=== PATIENT | female | born 1990 | race Caucasian/White ===

== ENCOUNTER 2017-11-15 09:11 | Emergency (ER) | payer OTHER ==
[~2017-11-15] VITALS: Ht 175.3 cm; Wt 127.0 kg
[~2017-11-15 09:11] MED LIST: BUSP5 PO; CIPR500 PO; CIPRO500 MG PO; CRANBERRY PO; CRANBERRY TABLETS; CRANBERRY TABS PO; CRUTCH4 USE; CYCL10 PO; Cranberry300 MG PO; DIVA125EC PO; ESCI10 PO; HYDACE5 PO; HYDR1TAB94 PO; IBUP600 PO; IBUP800 PO; INDO25 PO; LEVFLO500 PO; LEVSOD88 PO; METF500 PO; NAPR500 PO; NITR100CA PO; Norco 5-325 Ta1 EACH PO; ONDA4 PO; OXYACE5T PO; PHENA100 PO; PROM25 PO; Percocet 5-3251 EACH PO; Pyridium200 MG PO; RXHYDACE PO; SULF10OPSA OU; SULTRIDS PO; TRAM50 PO; Ultram50 MG PO; [UNRECOGNIZED DRUG - REMARK]
[2017-11-15] MEDS ORDERED: METF500 PO (09:34)
[2017-11-15] MEDS ORDERED: ALLO100 (09:36)
[2017-11-15] MEDS ORDERED: Percocet 5-3251 EACH PO (10:26)
== END 2017-11-15 10:41 | disposition home or self-care (01) ==
LOC: ER 09:11
DX: M25.561 Pain in right knee (principal); Z79.899 Other long term (current) drug therapy; Z79.84 Long term (current) use of oral hypoglycemic drugs
CPT/HCPCS: 73562-RT; 96372; 99283; J1885

== ENCOUNTER 2017-12-19 15:37 | Emergency (ER) | payer OTHER ==
[~2017-12-19] VITALS: Ht 175.3 cm; Wt 104.3 kg
[~2017-12-19 15:37] MED LIST changes: +ALLO100
[2017-12-19] MEDS ORDERED: LEVSOD88 PO (15:42)
[2017-12-19] MEDS ORDERED: Norco 5-325 Ta1 EACH PO (16:16)
== END 2017-12-19 16:24 | disposition home or self-care (01) ==
LOC: ER 15:37
DX: S93.504A Unspecified sprain of right lesser toe(s), initial encounter (principal); W22.8XXA Striking against or struck by other objects, initial encounter; Z79.899 Other long term (current) drug therapy; Z79.84 Long term (current) use of oral hypoglycemic drugs
CPT/HCPCS: 73630

== ENCOUNTER 2018-09-12 18:22 | Emergency (ER) | payer OTHER ==
[~2018-09-12] VITALS: Ht 172.7 cm; Wt 132.9 kg
[2018-09-12 19:52] LABS: BASOPHILS ABSOLUTE AUTO 0.03 K/mm3 (0.00-0.23); BASOPHILS PERCENT AUTO 0 % (0-2); EOSINOPHILS ABSOLUTE AUTO 0.11 K/mm3 (0.00-0.68); EOSINOPHILS PERCENT AUTO 1 % (0-6); Hematocrit 38.6 % (33.0-51.0); Hemoglobin 12.8 g/dL (11.5-16.0); IMMATURE GRAN ABSOLUTE AUTO 0.05 K/mm3 (0.00-0.10); IMMATURE GRAN PERCENT AUTO 0 % (0-1); LYMPHOCYTES ABSOLUTE AUTO 1.75 K/mm3 (0.84-5.20); LYMPHOCYTES PERCENT AUTO 14 % (21-46); MONOCYTES ABSOLUTE AUTO 0.76 K/mm3 (0.16-1.47); MONOCYTES PERCENT AUTO 6 % (4-13); Mean Corpuscular HGB 29.1 pg (26.0-34.0); Mean Corpuscular HGB Conc 33.2 g/dL (31.5-36.5); Mean Corpuscular Volume 88 fL (80-100); Mean Platelet Volume 11.3 fL (9.1-12.4); NEUTROPHILS ABSOLUTE AUTO 10.22 K/mm3 (1.96-9.15); NEUTROPHILS PERCENT AUTO 79 % (41-73); Platelet Count 269 K/mm3 (150-400); RDW Coefficient Variation 13.2 % (11.7-14.2); RDW Standard Deviation 42.4 fL (35.1-46.3); White Blood Cell Count 12.92 K/mm3 (4.00-11.30)
[2018-09-12 20:16] LABS: Alanine Aminotransfer (ALT/SGP 49 U/L (12-78); Albumin, Blood 3.6 g/dL (3.4-5.0); Albumin/Globulin Ratio 0.9 (0.8-1.8); Alk Phos 80 U/L (50-136); Anion Gap 10 mmol/L (6-16); Aspartate Aminotrans (AST/SGOT 25 U/L (12-37); Bilirubin, Total 0.2 mg/dL (0.1-1.0); Blood Urea Nitrogen 13 mg/dL (8-24); CO2, Blood 22 mmol/L (21-32); Calcium, Blood 8.5 mg/dL (8.5-10.1); Chloride, Blood 109 mmol/L (98-108); Glomerular Filtration Rate >60 (60-); Glucose, Blood 140 mg/dL (70-99); Potassium, Blood 4.1 mmol/L (3.5-5.5); Sodium, Blood 141 mmol/L (136-145); Total Protein, Blood 7.6 g/dL (6.4-8.2)
[2018-09-12] MEDS ORDERED: NITR100CA PO (20:29)
[2018-09-12 22:38] LABS: Source, Urine Clean Catch
[2018-09-12 22:41] LABS: Bilirubin, Urine Neg (Neg); Blood, Urine 2+ (Neg); Glucose Qualitative, Urine Neg (Neg); Ketones, Urine 1+ (Neg); Leukocyte Esterase, Urine 2+ (Neg); Nitrite, Urine Pos (Neg); Protein, Urine 3+ (Neg); Urobilinogen, Urine NORM (Normal)
[2018-09-12 22:43] LABS: Appearance, Urine Cloudy (Clear); Color, Urine Yellow (P-Yellow)
[2018-09-12 22:49] LABS: Bacteria Many /hpf; Red Blood Cells, Urine 0-2 /hpf (0-2); Squamous Epithelial Cells Mod /hpf (Few); White Blood Cells, Urine TNTC /hpf (0-5)
[2018-09-12] MEDS ORDERED: CEPH500 PO (23:14)
[2018-09-12] MEDS ORDERED: IBUP600 PO (23:14)
[2018-09-29] MEDS ORDERED: Amoxicillin500 MG PO (20:09)
[2018-09-29] MEDS ORDERED: HYDR1TAB94 PO (20:09)
== END 2018-09-12 23:30 | disposition home or self-care (01) ==
LOC: ER 18:22
PROVIDERS: Physician Assistant
DX: M25.561 Pain in right knee (principal); E03.9 Hypothyroidism, unspecified; Z79.899 Other long term (current) drug therapy
CPT/HCPCS: 36415; 73562-RT; 80053; 81001; 81025; 85025; 87077; 87086; 87186; 96374; 96375; 99283-25; J1885; J3010

== ENCOUNTER → 2019-01-10 | Outpatient (CLI) | payer OTHER ==
[~2019-01-10] MED LIST changes: +ACET325 PO; +ALLO300 PO; +AZO CRANBERRY1 EAC1 PO; +Amoxicillin500 MG PO; +BIRTH CONTROL; +CEFU500T30 PO; +CEPH500 PO; +COLCHICINE0.6 MG PO; +CRANBERRY250 MG PO; +DROSPIRENONE-E1 EACH PO; +IBUP400 PO; +Microgestin1 EACH PO; +OXYC5 PO; +Oxybutynin Chlo15 MG PO; +PRED10 PO; +PROM12.5S PR; +Protonix40 MG PO; +Synthroid88 MCG PO; +Voltaren100 GM TOP; +Yasmin 28 Tabl1 EACH PO; +Zofran8 MG PO
== END ==
LOC: LAB EV 14:40 → LAB SHORT 14:40
DX: R31.29 Other microscopic hematuria (principal)
CPT/HCPCS: 87086

== ENCOUNTER 2019-01-11 03:54 | Emergency (ER) | payer OTHER ==
[~2019-01-11] VITALS: Ht 175.3 cm; Wt 136.1 kg
[~2019-01-11 03:54] MED LIST changes: -ACET325 PO; -ALLO300 PO; -AZO CRANBERRY1 EAC1 PO; -BIRTH CONTROL; -COLCHICINE0.6 MG PO; -CRANBERRY250 MG PO; -DROSPIRENONE-E1 EACH PO; -Microgestin1 EACH PO; -OXYC5 PO; -Oxybutynin Chlo15 MG PO; -PRED10 PO; -PROM12.5S PR; -Protonix40 MG PO; -Synthroid88 MCG PO; -Voltaren100 GM TOP; -Yasmin 28 Tabl1 EACH PO
[2019-01-11] MEDS ORDERED: CRANBERRY250 MG PO (04:16)
[2019-01-11] MEDS ORDERED: Yasmin 28 Tabl1 EACH PO (04:16)
== END 2019-01-11 06:52 | disposition home or self-care (01) ==
LOC: ER 03:54
DX: M54.41 Lumbago with sciatica, right side (principal); Z79.899 Other long term (current) drug therapy
CPT/HCPCS: 72100; 96372; 99283-25; J1885; Q0163

== ENCOUNTER 2019-01-27 14:00 | Observation (INO) | payer OTHER ==
[~2019-01-27] VITALS: Ht 175.3 cm; Wt 143.4 kg
[~2019-01-27 14:00] MED LIST changes: +CRANBERRY250 MG PO; +Yasmin 28 Tabl1 EACH PO
[2019-01-30] MEDS ORDERED: Voltaren100 GM TOP (11:14)
[2019-01-30] MEDS ORDERED: PRED10 PO (11:14)
[2019-01-30] MEDS ORDERED: Percocet 5-3251 EACH PO (11:14)
[2019-03-03] MEDS ORDERED: BIRTH CONTROL (11:15)
[2019-03-03 17:47] LABS: Hematocrit 31.3 % (33.0-51.0); Hemoglobin 10.1 g/dL (11.5-16.0); Mean Corpuscular HGB 28.4 pg (26.0-34.0); Mean Corpuscular HGB Conc 32.3 g/dL (31.5-36.5); Mean Corpuscular Volume 88 fL (80-100); RDW Coefficient Variation 13.8 % (11.7-14.2); RDW Standard Deviation 44.8 fL (35.1-46.3); Red Blood Cell Count 3.56 M/mm3 (3.80-5.20); White Blood Cell Count 13.22 K/mm3 (4.00-11.30)
[2019-03-03 18:30] LABS: Mean Platelet Volume 11.5 fL (9.1-12.4); Platelet Count 213 K/mm3 (150-400)
[2019-03-05] MEDS ORDERED: Microgestin1 EACH PO (14:03)
[2019-03-05] MEDS ORDERED: ACET325 PO (14:04)
[2019-03-05] MEDS ORDERED: OXYC5 PO (14:04)
[2019-03-05] MEDS ORDERED: PROM25 PO (14:05)
== END 2019-03-05 15:25 | disposition home health service (06) ==
LOC: SURS 03-03 10:35 → PRE IP 03-03 10:35 → SURS 03-03 10:35 → PRE IP 03-03 12:00 → SURS 03-03 14:56
PROVIDERS: ADMIT Podiatrist Foot & Ankle Surgery
PROC: 0SGF04Z Fusion of Right Ankle Joint with Internal Fixation Device, Open Approach (ICD-10-PCS; principal; 2019-03-03 12:00)
DX: M19.071 Primary osteoarthritis, right ankle and foot (principal); R11.2 Nausea with vomiting, unspecified; R03.0 Elevated blood-pressure reading, without diagnosis of hypertension; E03.9 Hypothyroidism, unspecified
CPT/HCPCS: 36415; 73610; 85027; 96374; 96375; 96376; 97161; 97166; 97530; 97535; A9270; C1713; G0378; J0171; J0690; J0735; J1170; J1885; J2250; J2405; J2550; J2704; J2795; J3010; J7120

== ENCOUNTER 2019-01-30 08:29 | Emergency (ER) | payer OTHER ==
[~2019-01-30] VITALS: Ht 175.3 cm; Wt 136.1 kg
[2019-01-30] MEDS ORDERED: Percocet 5-3251 EACH PO (11:14)
[2019-01-30] MEDS ORDERED: Voltaren100 GM TOP (11:14)
[2019-01-30] MEDS ORDERED: PRED10 PO (11:14)
== END 2019-01-30 11:59 | disposition home or self-care (01) ==
LOC: ER 08:29
DX: S93.402A Sprain of unspecified ligament of left ankle, initial encounter (principal); S83.92XA Sprain of unspecified site of left knee, initial encounter; X58.XXXA Exposure to other specified factors, initial encounter
CPT/HCPCS: 73590; 73630; 99283-25; A9270-GY

== ENCOUNTER → 2019-03-12 | Outpatient (CLI) | payer OTHER ==
[~2019-03-12] MED LIST changes: +ACET325 PO; +ALLO300 PO; +AZO CRANBERRY1 EAC1 PO; +BIRTH CONTROL; +COLCHICINE0.6 MG PO; +DROSPIRENONE-E1 EACH PO; +Microgestin1 EACH PO; +OXYC5 PO; +Oxybutynin Chlo15 MG PO; +PRED10 PO; +PROM12.5S PR; +Protonix40 MG PO; +Synthroid88 MCG PO; +Voltaren100 GM TOP
[2019-03-13 13:07] LABS: HPV 16 Negative (Negative); HPV 18 Negative (Negative); HPV OTHER HR TYPES Positive (Negative)
== END | disposition home or self-care (01) ==
LOC: LAB SHORT 10:46 → LAB 10:46
PROVIDERS: Obstetrics & Gynecology
DX: Z01.419 Encounter for gynecological examination (general) (routine) without abnormal findings (principal)
CPT/HCPCS: 87624; 87625; G0123

== ENCOUNTER 2019-03-24 16:24 | Emergency (ER) | payer OTHER ==
[~2019-03-24] VITALS: Ht 175.3 cm; Wt 136.1 kg
[~2019-03-24 16:24] MED LIST changes: -ALLO300 PO; -AZO CRANBERRY1 EAC1 PO; -COLCHICINE0.6 MG PO; -DROSPIRENONE-E1 EACH PO; -Oxybutynin Chlo15 MG PO; -PROM12.5S PR; -Protonix40 MG PO; -Synthroid88 MCG PO
[2019-03-24 17:08] LABS: BASOPHILS ABSOLUTE AUTO 0.04 K/mm3 (0.00-0.23); BASOPHILS PERCENT AUTO 0 % (0-2); EOSINOPHILS ABSOLUTE AUTO 0.29 K/mm3 (0.00-0.68); EOSINOPHILS PERCENT AUTO 2 % (0-6); Hematocrit 35.1 % (33.0-51.0); Hemoglobin 11.2 g/dL (11.5-16.0); IMMATURE GRAN ABSOLUTE AUTO 0.05 K/mm3 (0.00-0.10); IMMATURE GRAN PERCENT AUTO 0 % (0-1); LYMPHOCYTES PERCENT AUTO 20 % (21-46); MONOCYTES ABSOLUTE AUTO 0.76 K/mm3 (0.16-1.47); MONOCYTES PERCENT AUTO 6 % (4-13); Mean Corpuscular HGB 28.4 pg (26.0-34.0); Mean Corpuscular HGB Conc 31.9 g/dL (31.5-36.5); Mean Corpuscular Volume 89 fL (80-100); Mean Platelet Volume 11.6 fL (9.1-12.4); NEUTROPHILS ABSOLUTE AUTO 9.86 K/mm3 (1.96-9.15); NEUTROPHILS PERCENT AUTO 72 % (41-73); Platelet Count 346 K/mm3 (150-400); RDW Coefficient Variation 14.1 % (11.7-14.2); RDW Standard Deviation 45.5 fL (35.1-46.3); Red Blood Cell Count 3.94 M/mm3 (3.80-5.20)
[2019-03-24 17:38] LABS: Alanine Aminotransfer (ALT/SGP 26 U/L (12-78); Albumin, Blood 3.5 g/dL (3.4-5.0); Albumin/Globulin Ratio 0.8 (0.8-1.8); Alk Phos 84 U/L (50-136); Anion Gap 6 mmol/L (6-16); Aspartate Aminotrans (AST/SGOT 15 U/L (12-37); Bilirubin, Total 0.3 mg/dL (0.1-1.0); Blood Urea Nitrogen 8 mg/dL (8-24); Bun/Creatinine Ratio 9.8 (12.0-20.0); CO2, Blood 24 mmol/L (21-32); Calcium, Blood 9.5 mg/dL (8.5-10.1); Chloride, Blood 108 mmol/L (98-108); Creatinine, Blood 0.82 mg/dL (0.40-1.00); Globulin, Blood 4.3 g/dL (2.2-4.0); Glomerular Filtration Rate >60 (60-); Glucose, Blood 98 mg/dL (70-99); Sodium, Blood 138 mmol/L (136-145); Total Protein, Blood 7.8 g/dL (6.4-8.2)
[2019-03-24 19:43] LABS: Source, Urine Clean Catch
[2019-03-24 19:46] LABS: Bilirubin, Urine Neg (Neg); Blood, Urine 1+ (Neg); Glucose Qualitative, Urine Neg (Neg); Ketones, Urine Neg (Neg); Leukocyte Esterase, Urine 1+ (Neg); Nitrite, Urine Neg (Neg); Protein, Urine 2+ (Neg); Specific Gravity, Urine 1.015 (1.003-1.022); Urobilinogen, Urine NORM (Normal)
[2019-03-24 19:53] LABS: Appearance, Urine Clear (Clear); Bacteria Many /hpf; Color, Urine Yellow (P-Yellow); Red Blood Cells, Urine 0-2 /hpf (0-2); Squamous Epithelial Cells Few /hpf (Few)
[2019-03-24] MEDS ORDERED: CEPH500 PO (22:05)
[2019-03-24] MEDS ORDERED: PROM12.5S PR (22:05)
[2019-03-24] MEDS ORDERED: Protonix40 MG PO (22:05)
== END 2019-03-24 22:35 | disposition home or self-care (01) ==
LOC: ER 16:24
PROVIDERS: Emergency Medicine
DX: K29.70 Gastritis, unspecified, without bleeding (principal); N39.0 Urinary tract infection, site not specified; Z79.899 Other long term (current) drug therapy; E03.9 Hypothyroidism, unspecified
CPT/HCPCS: 36415; 80053; 81001; 81025; 83690; 85025; 87077; 87086; 87186; 96365; 96375; 99284-25; C9113; J0696; J1200; J1630; J2060; J7030

== ENCOUNTER 2019-05-06 11:26 | Inpatient (IN) | payer OTHER ==
[~2019-05-06] VITALS: Ht 175.3 cm; Wt 136.1 kg
[~2019-05-06 11:26] MED LIST changes: +PROM12.5S PR; +Protonix40 MG PO
[2019-05-06] MEDS ORDERED: Oxybutynin Chlo15 MG PO (11:59)
[2019-05-06] MEDS ORDERED: AZO CRANBERRY1 EAC1 PO (12:00)
[2019-05-06] MEDS ORDERED: DROSPIRENONE-E1 EACH PO (12:00)
[2019-05-06 12:57] LABS: Source, Urine Clean Catch
[2019-05-06 13:10] LABS: Bilirubin, Urine Neg (Neg); Blood, Urine 2+ (Neg); Glucose Qualitative, Urine Neg (Neg); Ketones, Urine Neg (Neg); Leukocyte Esterase, Urine 2+ (Neg); Nitrite, Urine Pos (Neg); Protein, Urine 3+ (Neg); Urobilinogen, Urine NORM (Normal)
[2019-05-06 13:16] LABS: Appearance, Urine Hazy (Clear); Color, Urine Yellow (P-Yellow)
[2019-05-06 13:19] LABS: Bacteria Many /hpf; Squamous Epithelial Cells Many /hpf (Few)
[2019-05-06 13:24] LABS: BASOPHILS ABSOLUTE AUTO 0.04 K/mm3 (0.00-0.23); BASOPHILS PERCENT AUTO 0 % (0-2); EOSINOPHILS ABSOLUTE AUTO 0.12 K/mm3 (0.00-0.68); EOSINOPHILS PERCENT AUTO 1 % (0-6); Hematocrit 33.1 % (33.0-51.0); Hemoglobin 10.3 g/dL (11.5-16.0); IMMATURE GRAN ABSOLUTE AUTO 0.13 K/mm3 (0.00-0.10); IMMATURE GRAN PERCENT AUTO 1 % (0-1); LYMPHOCYTES PERCENT AUTO 30 % (21-46); MONOCYTES ABSOLUTE AUTO 0.65 K/mm3 (0.16-1.47); MONOCYTES PERCENT AUTO 5 % (4-13); Mean Corpuscular HGB 27.5 pg (26.0-34.0); Mean Corpuscular HGB Conc 31.1 g/dL (31.5-36.5); Mean Corpuscular Volume 88 fL (80-100); Mean Platelet Volume 11.4 fL (9.1-12.4); NEUTROPHILS ABSOLUTE AUTO 7.98 K/mm3 (1.96-9.15); NEUTROPHILS PERCENT AUTO 63 % (41-73); Platelet Count 295 K/mm3 (150-400); RDW Coefficient Variation 14.4 % (11.7-14.2); Red Blood Cell Count 3.75 M/mm3 (3.80-5.20); White Blood Cell Count 12.72 K/mm3 (4.00-11.30)
[2019-05-06 13:38] LABS: Alanine Aminotransfer (ALT/SGP 32 U/L (12-78); Albumin, Blood 3.1 g/dL (3.4-5.0); Albumin/Globulin Ratio 0.8 (0.8-1.8); Alk Phos 74 U/L (50-136); Anion Gap 4 mmol/L (6-16); Aspartate Aminotrans (AST/SGOT 19 U/L (12-37); Bilirubin, Total 0.1 mg/dL (0.1-1.0); Blood Urea Nitrogen 11 mg/dL (8-24); CO2, Blood 29 mmol/L (21-32); Calcium, Blood 8.6 mg/dL (8.5-10.1); Chloride, Blood 109 mmol/L (98-108); Creatinine, Blood 0.92 mg/dL (0.40-1.00); Globulin, Blood 3.9 g/dL (2.2-4.0); Glomerular Filtration Rate >60 (60-); Glucose, Blood 80 mg/dL (70-99); Potassium, Blood 3.4 mmol/L (3.5-5.5); Sodium, Blood 142 mmol/L (136-145)
[2019-05-06 13:58] LABS: Source, Urine Catheter
[2019-05-06 14:04] LABS: Bilirubin, Urine Neg (Neg); Blood, Urine 3+ (Neg); Glucose Qualitative, Urine Neg (Neg); Ketones, Urine Neg (Neg); Leukocyte Esterase, Urine 2+ (Neg); Nitrite, Urine Neg (Neg); Protein, Urine 3+ (Neg); Specific Gravity, Urine 1.015 (1.003-1.022); Urobilinogen, Urine NORM (Normal)
[2019-05-06 14:19] LABS: Appearance, Urine Clear (Clear); Color, Urine Yellow (P-Yellow)
[2019-05-06 14:20] LABS: Bacteria Many /hpf; Squamous Epithelial Cells Few /hpf (Few)
[2019-05-07 05:19] LABS: BASOPHILS ABSOLUTE AUTO 0.05 K/mm3 (0.00-0.23); BASOPHILS PERCENT AUTO 0 % (0-2); EOSINOPHILS ABSOLUTE AUTO 0.22 K/mm3 (0.00-0.68); EOSINOPHILS PERCENT AUTO 2 % (0-6); Hematocrit 35.6 % (33.0-51.0); Hemoglobin 11.1 g/dL (11.5-16.0); IMMATURE GRAN ABSOLUTE AUTO 0.14 K/mm3 (0.00-0.10); IMMATURE GRAN PERCENT AUTO 1 % (0-1); LYMPHOCYTES ABSOLUTE AUTO 4.54 K/mm3 (0.84-5.20); LYMPHOCYTES PERCENT AUTO 33 % (21-46); MONOCYTES ABSOLUTE AUTO 0.68 K/mm3 (0.16-1.47); MONOCYTES PERCENT AUTO 5 % (4-13); Mean Corpuscular HGB Conc 31.2 g/dL (31.5-36.5); Mean Corpuscular Volume 87 fL (80-100); NEUTROPHILS PERCENT AUTO 59 % (41-73); RDW Coefficient Variation 14.6 % (11.7-14.2); RDW Standard Deviation 45.5 fL (35.1-46.3); Red Blood Cell Count 4.11 M/mm3 (3.80-5.20); White Blood Cell Count 13.73 K/mm3 (4.00-11.30)
[2019-05-07 05:24] LABS: Mean Platelet Volume 11.3 fL (9.1-12.4); Platelet Count 289 K/mm3 (150-400)
[2019-05-07 05:30] LABS: Alanine Aminotransfer (ALT/SGP 36 U/L (12-78); Albumin, Blood 3.4 g/dL (3.4-5.0); Albumin/Globulin Ratio 0.9 (0.8-1.8); Alk Phos 78 U/L (50-136); Anion Gap 9 mmol/L (6-16); Aspartate Aminotrans (AST/SGOT 20 U/L (12-37); Bilirubin, Total 0.2 mg/dL (0.1-1.0); Blood Urea Nitrogen 12 mg/dL (8-24); Bun/Creatinine Ratio 12.5 (12.0-20.0); CO2, Blood 24 mmol/L (21-32); Calcium, Blood 8.7 mg/dL (8.5-10.1); Chloride, Blood 110 mmol/L (98-108); Creatinine, Blood 0.96 mg/dL (0.40-1.00); Globulin, Blood 3.9 g/dL (2.2-4.0); Glomerular Filtration Rate >60 (60-); Glucose, Blood 75 mg/dL (70-99); Potassium, Blood 4.2 mmol/L (3.5-5.5); Sodium, Blood 143 mmol/L (136-145); Total Protein, Blood 7.3 g/dL (6.4-8.2)
--- NOTE | 2019-05-07 06:15 | NUR ---
Shift summary. Right hand, wrist and arm swollen and painful but no redness or streaking noted. Oxycodone given last pm with good pain relief. brought patient in food and pt promptly threw it all up. Zofran given with relief for the nausea. Pt states right hand is even more swollen this am but it looks about the same to me. Pt getting ancef antibiotics. WBC are up to 13.7 this am. Pt has had a recent right ankle fx which she has to wear an ortho boot for. Otherwise she is non-weight bearing on the right. She has crutches to use if necesscary in the room.
--- NOTE | 2019-05-07 19:23 | NUR ---
SHIFT SUMMARY PT INDEPENDENT TO BATHROOM USING CRUTCHES. REPORTS NAUSEA AFTER OR DURING EACH ANTIBIOTIC. R ARM AND HAND SUPPORTED BY PILLOWS FOR COMFORT. NO FEVER. SHOWER TAKEN AND PT TOLERATED WITH NO DURESS.
[2019-05-08 04:46] LABS: BASOPHILS ABSOLUTE AUTO 0.03 K/mm3 (0.00-0.23); BASOPHILS PERCENT AUTO 0 % (0-2); EOSINOPHILS ABSOLUTE AUTO 0.29 K/mm3 (0.00-0.68); EOSINOPHILS PERCENT AUTO 3 % (0-6); Hematocrit 31.6 % (33.0-51.0); Hemoglobin 9.8 g/dL (11.5-16.0); IMMATURE GRAN ABSOLUTE AUTO 0.08 K/mm3 (0.00-0.10); IMMATURE GRAN PERCENT AUTO 1 % (0-1); LYMPHOCYTES ABSOLUTE AUTO 2.46 K/mm3 (0.84-5.20); LYMPHOCYTES PERCENT AUTO 28 % (21-46); MONOCYTES ABSOLUTE AUTO 0.58 K/mm3 (0.16-1.47); MONOCYTES PERCENT AUTO 7 % (4-13); Mean Corpuscular HGB 27.2 pg (26.0-34.0); Mean Corpuscular Volume 88 fL (80-100); Mean Platelet Volume 11.1 fL (9.1-12.4); NEUTROPHILS ABSOLUTE AUTO 5.51 K/mm3 (1.96-9.15); NEUTROPHILS PERCENT AUTO 62 % (41-73); Platelet Count 260 K/mm3 (150-400); RDW Coefficient Variation 14.7 % (11.7-14.2); RDW Standard Deviation 47.4 fL (35.1-46.3); White Blood Cell Count 8.95 K/mm3 (4.00-11.30)
[2019-05-08 05:05] LABS: Anion Gap 5 mmol/L (6-16); Blood Urea Nitrogen 13 mg/dL (8-24); Bun/Creatinine Ratio 12.4 (12.0-20.0); CO2, Blood 30 mmol/L (21-32); Calcium, Blood 8.6 mg/dL (8.5-10.1); Chloride, Blood 106 mmol/L (98-108); Creatinine, Blood 1.05 mg/dL (0.40-1.00); Glomerular Filtration Rate >60 (60-); Glucose, Blood 103 mg/dL (70-99); Potassium, Blood 4.2 mmol/L (3.5-5.5); Sodium, Blood 141 mmol/L (136-145)
--- NOTE | 2019-05-08 06:09 | NUR ---
Shift summary. Pt WBC's are down to normal this am and some of the swelling right arm is down. Pt got 2 doses of zosyn last pm and this am she is vomiting several times. Gave her the oral zofran and pt is unable to hold it down. Will call and get it iv. IV left arm went bad last pm and after several tries we were able to get another iv in. Pt npo this am just in case any surgery is needed this am.
--- NOTE | 2019-05-08 19:37 | NUR ---
SHIFT SUMMARY INDEPENDENT IN ROOM USING CRUTCHES. VERY NAUSEATED THIS MORNING AND FEELING POORLY WITH HEADACHE. PHENERGAN GIVEN APPROX NOON AND TYLENOL GIVEN FOR HEADACHE AND REPORTS FEELING SIGNIFICANTLY BETTER TONIGHT. R HAND REMAINS SWOLLEN BUT REPORTS PAIN IMPROVING. HOPES TO GO HOME TOMORROW.
--- NOTE | 2019-05-09 05:46 | NUR ---
SHIFT SUMMARY: PT HAS DONE WELL THIS SHIFT. RIGHT HAND REMAINS SWOLLEN. PT DENIES PAIN. GIVEN ZOFRAN ONCE FOR C/O OF NAUSEA. INDEPENDENT IN ROOM. RLE SWOLLEN FROM PREVIOUS SURGICAL REPAIR. WBAT. INDEPENDENT IN ROOM AND VOIDING WELL. FLUIDS INFUSING. NO CONCERNS AT THIS TIME.
[2019-05-09] MEDS ORDERED: ACET325 PO (11:11)
[2019-05-09] MEDS ORDERED: COLCHICINE0.6 MG PO (11:12)
[2019-05-09] MEDS ORDERED: Synthroid88 MCG PO (11:13)
[2019-05-09] MEDS ORDERED: LEVFLO500 PO (11:14)
[2019-05-09] MEDS ORDERED: ALLO300 PO (11:14)
== END 2019-05-09 12:43 | disposition home or self-care (01) | DRG 554 ==
LOC: ER 11:26 → MEDS 11:27
PROVIDERS: Emergency Medicine; ADMIT Family Medicine
DX: M10.9 Gout, unspecified (principal); N39.0 Urinary tract infection, site not specified; Z68.41 Body mass index [BMI] 40.0-44.9, adult; B96.20 Unspecified Escherichia coli [E. coli] as the cause of diseases classified elsewhere; E03.9 Hypothyroidism, unspecified; N32.81 Overactive bladder; R32 Unspecified urinary incontinence; N28.89 Other specified disorders of kidney and ureter; E86.9 Volume depletion, unspecified; E66.3 Overweight; R11.2 Nausea with vomiting, unspecified; T50.4X5A Adverse effect of drugs affecting uric acid metabolism, initial encounter; Y92.239 Unspecified place in hospital as the place of occurrence of the external cause; Z79.3 Long term (current) use of hormonal contraceptives; Z79.899 Other long term (current) drug therapy
CPT/HCPCS: 36415; 73223; 80048; 80053; 81001; 81025; 83036; 84443; 84550; 85025; 85651; 86140; 87040; 87077; 87086; 87186; 96361; 96365-59; 96366; 96367; 96375; 96376; 99285-25; A9270; A9577; G0378; J0690; J1956; J2543; J2930; J3480; P9612

== ENCOUNTER 2019-07-12 08:51 | Emergency (ER) | payer OTHER ==
[~2019-07-12] VITALS: Ht 175.3 cm; Wt 136.1 kg
[~2019-07-12 08:51] MED LIST changes: +ALLO300 PO; +AZO CRANBERRY1 EAC1 PO; +COLCHICINE0.6 MG PO; +DROSPIRENONE-E1 EACH PO; +Oxybutynin Chlo15 MG PO; +Synthroid88 MCG PO
[2019-07-12 10:23] LABS: Source, Urine Clean Catch
[2019-07-12 10:33] LABS: Appearance, Urine Hazy (Clear); Bilirubin, Urine Neg (Neg); Blood, Urine 4+ (Neg); Color, Urine Yellow (P-Yellow); Glucose Qualitative, Urine Neg (Neg); Ketones, Urine Neg (Neg); Leukocyte Esterase, Urine 2+ (Neg); Nitrite, Urine Pos (Neg); Protein, Urine 3+ (Neg); Urobilinogen, Urine NORM (Normal)
[2019-07-12 10:42] LABS: Bacteria Many /hpf; Squamous Epithelial Cells Mod /hpf (Few); White Blood Cells, Urine 25-50 /hpf (0-5)
[2019-07-12] MEDS ORDERED: CEPH500 PO (12:32)
[2019-07-12] MEDS ORDERED: Norco 10-325 T1 EACH PO (12:32)
== END 2019-07-12 12:56 | disposition home or self-care (01) ==
LOC: ER 08:51
PROVIDERS: Emergency Medicine
DX: M51.16 Intervertebral disc disorders with radiculopathy, lumbar region (principal); N39.0 Urinary tract infection, site not specified
CPT/HCPCS: 72100; 72220; 81001; 81025; 87077; 87086; 87186; 96372; 99283-25; A9270-GY; J1100; J2550; J3010

== ENCOUNTER → 2019-10-28 | Outpatient (CLI) | payer OTHER ==
[~2019-10-28] MED LIST changes: +Norco 10-325 T1 EACH PO
== END | disposition home or self-care (01) ==
LOC: LAB EV 12:00 → LAB SHORT 12:00
DX: R10.9 Unspecified abdominal pain (principal)
CPT/HCPCS: 87077; 87086; 87186

== ENCOUNTER 2020-01-18 18:14 | Emergency (ER) | payer OTHER ==
[~2020-01-18] VITALS: Ht 175.3 cm; Wt 140.6 kg
== END 2020-01-19 00:30 | disposition home or self-care (01) ==
LOC: ER 18:14
DX: M70.31 Other bursitis of elbow, right elbow (principal); Z79.899 Other long term (current) drug therapy
CPT/HCPCS: 93971; 99283-25; A9270; A9270-GY; J1100

== ENCOUNTER 2020-09-07 20:42 | Emergency (ER) | payer OTHER ==
[~2020-09-07] VITALS: Ht 175.3 cm; Wt 131.1 kg
[2020-09-07] MEDS ORDERED: ALLO300 PO (20:46)
[2020-09-07] MEDS ORDERED: LABE100 PO (20:46)
[2020-09-07] MEDS ORDERED: METF500 PO (20:46)
[2020-09-07] MEDS ORDERED: EUTHYROX88 MC1 PO (20:47)
== END 2020-09-07 21:21 | disposition home or self-care (01) ==
LOC: ER 20:42
DX: K04.7 Periapical abscess without sinus (principal); K02.9 Dental caries, unspecified; Z79.84 Long term (current) use of oral hypoglycemic drugs; Z79.899 Other long term (current) drug therapy
CPT/HCPCS: 41800; 99283-25; A9270

== ENCOUNTER 2021-10-26 11:37 | Observation (INO) | payer OTHER ==
[~2021-10-26] VITALS: Ht 175.3 cm; Wt 135.0 kg
[~2021-10-26 11:37] MED LIST changes: +EUTHYROX88 MC1 PO; +LABE100 PO
[2021-10-26] MEDS ORDERED: CEPH500 PO ×2 (13:02)
[2021-10-26] MEDS ORDERED: DULOXETINE HCL60 M1 PO ×2 (13:02)
[2021-10-26 13:11] LABS: BASOPHILS ABSOLUTE AUTO 0.04 K/mm3 (0.00-0.23); BASOPHILS PERCENT AUTO 0 % (0-2); EOSINOPHILS ABSOLUTE AUTO 0.16 K/mm3 (0.00-0.68); EOSINOPHILS PERCENT AUTO 2 % (0-6); Hematocrit 39.8 % (33.0-51.0); Hemoglobin 12.8 g/dL (11.5-16.0); IMMATURE GRAN ABSOLUTE AUTO 0.05 K/mm3 (0.00-0.10); IMMATURE GRAN PERCENT AUTO 1 % (0-1); LYMPHOCYTES ABSOLUTE AUTO 3.02 K/mm3 (0.84-5.20); LYMPHOCYTES PERCENT AUTO 33 % (21-46); MONOCYTES ABSOLUTE AUTO 0.65 K/mm3 (0.16-1.47); MONOCYTES PERCENT AUTO 7 % (4-13); Mean Corpuscular HGB 28.9 pg (26.0-34.0); Mean Corpuscular HGB Conc 32.2 g/dL (31.5-36.5); Mean Corpuscular Volume 90 fL (80-100); NEUTROPHILS ABSOLUTE AUTO 5.28 K/mm3 (1.96-9.15); NEUTROPHILS PERCENT AUTO 58 % (41-73); RDW Coefficient Variation 13.2 % (11.7-14.2); RDW Standard Deviation 43.3 fL (35.1-46.3); Red Blood Cell Count 4.43 M/mm3 (3.80-5.20)
[2021-10-26 13:17] LABS: Alanine Aminotransfer (ALT/SGP 43 U/L (12-78); Albumin, Blood 4.2 g/dL (3.4-5.0); Albumin/Globulin Ratio 1.1 (0.8-1.8); Alk Phos 71 U/L (50-136); Anion Gap 7 mmol/L (6-16); Aspartate Aminotrans (AST/SGOT 29 U/L (12-37); Bilirubin, Total 0.2 mg/dL (0.1-1.0); Blood Urea Nitrogen 12 mg/dL (8-24); Bun/Creatinine Ratio 14.5 (12.0-20.0); CO2, Blood 27 mmol/L (21-32); Calcium, Blood 8.9 mg/dL (8.5-10.1); Chloride, Blood 106 mmol/L (98-108); Creatinine, Blood 0.83 mg/dL (0.40-1.00); Globulin, Blood 3.7 g/dL (2.2-4.0); Glomerular Filtration Rate >60 (60-); Glucose, Blood 87 mg/dL (70-99); Potassium, Blood 4.2 mmol/L (3.5-5.5); Sodium, Blood 140 mmol/L (136-145); Total Protein, Blood 7.9 g/dL (6.4-8.2)
[2021-10-26 13:39] LABS: Mean Platelet Volume 11.3 fL (9.1-12.4)
[2021-10-26 13:54] LABS: Platelet Count 250 K/mm3 (150-400)
--- NOTE | 2021-10-26 16:55 | NUR ---
DAY SHIFT SUMMARY 31 YR OLD PT, ER TRANSFER FOR ADMIT. ADMITTED FOR ABX THERAPY. PT HAD RECENT HAND SURGERY 13 DAYS AGO FOR TRIGGER FINGER RELEASE. AFTER STITCHES REMOVAL REDNESS AND SWELLING INCREASED. PT IS A/O X4 AND INDEPENDENT IN THE ROOM. CALL LIGHT WITHIN REACH AND ABLE TO CALL APPROPRIATELY. ORIENTED TO ROOM/CALL LIGHT/SURROUNDING AREA. ADMISSION ASSESSMENT DONE.
[2021-10-26] MEDS ORDERED: ALLO100 PO ×2 (21:06)
[2021-10-26] MEDS ORDERED: LABE100 PO ×2 (21:06)
[2021-10-27 05:17] LABS: BASOPHILS ABSOLUTE AUTO 0.03 K/mm3 (0.00-0.23); BASOPHILS PERCENT AUTO 0 % (0-2); EOSINOPHILS ABSOLUTE AUTO 0.14 K/mm3 (0.00-0.68); EOSINOPHILS PERCENT AUTO 2 % (0-6); Hematocrit 35.4 % (33.0-51.0); Hemoglobin 11.3 g/dL (11.5-16.0); IMMATURE GRAN ABSOLUTE AUTO 0.05 K/mm3 (0.00-0.10); IMMATURE GRAN PERCENT AUTO 1 % (0-1); LYMPHOCYTES ABSOLUTE AUTO 2.68 K/mm3 (0.84-5.20); LYMPHOCYTES PERCENT AUTO 35 % (21-46); MONOCYTES ABSOLUTE AUTO 0.52 K/mm3 (0.16-1.47); MONOCYTES PERCENT AUTO 7 % (4-13); Mean Corpuscular HGB Conc 31.9 g/dL (31.5-36.5); Mean Corpuscular Volume 91 fL (80-100); Mean Platelet Volume 10.6 fL (9.1-12.4); NEUTROPHILS ABSOLUTE AUTO 4.24 K/mm3 (1.96-9.15); NEUTROPHILS PERCENT AUTO 55 % (41-73); Platelet Count 246 K/mm3 (150-400); RDW Coefficient Variation 13.1 % (11.7-14.2); RDW Standard Deviation 42.5 fL (35.1-46.3); White Blood Cell Count 7.66 K/mm3 (4.00-11.30)
[2021-10-27 05:42] LABS: Anion Gap 6 mmol/L (6-16); Blood Urea Nitrogen 16 mg/dL (8-24); Bun/Creatinine Ratio 17.9 (12.0-20.0); CO2, Blood 27 mmol/L (21-32); Calcium, Blood 8.5 mg/dL (8.5-10.1); Chloride, Blood 108 mmol/L (98-108); Creatinine, Blood 0.89 mg/dL (0.40-1.00); Glomerular Filtration Rate >60 (60-); Glucose, Blood 88 mg/dL (70-99); Potassium, Blood 3.9 mmol/L (3.5-5.5); Sodium, Blood 141 mmol/L (136-145)
--- NOTE | 2021-10-27 06:33 | NUR ---
PM SHIFT SUMMARY PATIENT IS HERE FOR ANTIBIOTIC THERAPY. SHE HAD NO COMPLAINTS DURING SHIFT. FOR A POSSIBLE INFECTION IN HER 3RD DIGIT OF THE RIGHT HAND. SHE HAD SURGERY ROUGHLY 2 WEEKS AGO TO RELEASE TRIGGER FINGER. ONCE HER GENNA WERE REMOVED, SHE HAD SWELLING THAT PREVIOUS ANTIBIOTICS DID NOT SEEM TO HELP.
--- NOTE | 2021-10-27 16:09 | NUR ---
Per chart review with Dr. Gordon, patient appropriate to discharge home after second dose of IV abx this afternoon. [facility] coordinated outpatient IV abx with [facility]. Patient to receive IV abx TID. Per [facility] patient is to return to [facility] to receive third daily dose of IV abx and continue for 6 days. Pt to start at [facility] tomorrow morning at 8am daily x 6 days, return to [facility] at 4pm daily x 6 days. [facility] consulted with Dr. Gordon, patient's nurse Jenae, patient and her fiance regarding this outpatient IV abx plan. All agreeable to discharge plan, deny barriers to discharge. Patient scheduled for a [facility] hospital follow up appointment with Oswaldo Monique on November 01 at noon.
--- NOTE | 2021-10-27 18:02 | NUR ---
SHIFT SUMMARY PT IS A&O, PLEASANT AND CO-OP. ADMITTED FOR RH INFECTION TO RECEIVE IV ABX. PT FAILED PO OUT PT ABX. IV ABX GIVEN THRU OUT THE DAY. PG IV PLACED FOR OUTPT ATC INFUSION. PT MEDICATED FOR C/O PAIN THIS AM. NO FURTHER C/O. D/C ORDERS PLACED. INSTRUCTIONS REVIEWED WITH PT; VERBALIZED UNDERSTANDING. PT TO RETURN TONIGHT AT [facility] FOR NEXT INFUSION. PT TAKEN OUT BY WITH BELONGINGS.
== END 2021-10-27 18:02 | disposition home or self-care (01) ==
LOC: ER 11:37 → MEDS 11:38 → ER 15:55 → MEDS 16:23
PROVIDERS: Student in an Organized Health Care Education/Training Program; ADMIT Internal Medicine
DX: M65.9 Synovitis and tenosynovitis, unspecified (principal); E03.9 Hypothyroidism, unspecified; I10 Essential (primary) hypertension
CPT/HCPCS: 36415; 73130; 80048; 80053; 85025; 85651; 86140; 96365; 96366; 96372; 96376; 99284-25; G0378; J1885; J7050

== ENCOUNTER 2021-10-27 23:39 | Day surgery (SDC) | payer OTHER ==
[~2021-10-27 23:39] MED LIST changes: +ALLO100 PO; +DULOXETINE HCL60 M1 PO
[2021-10-29] MEDS ORDERED: CLINDAMYCIN IV (08:22)
== END 2021-10-28 23:19 | disposition home or self-care (01) ==
LOC: ATC 23:39
DX: L08.9 Local infection of the skin and subcutaneous tissue, unspecified (principal); M65.141 Other infective (teno)synovitis, right hand; E03.9 Hypothyroidism, unspecified; I10 Essential (primary) hypertension; Z98.890 Other specified postprocedural states

== ENCOUNTER 2021-10-28 07:32 | Day surgery (SDC) | payer OTHER ==
--- NOTE | 2021-10-28 16:20 | NUR ---
PT EDUCATED ABOUT GOING TO SURGICAL FLOOR FOR 0000 INFUSION, AND THAT HER WEEKEND INFUSIONS WILL BE ON 2ND FLOOR WELL AND THE NEED TO CHECK IN AT ADMITTING NEXT TO THE ER. PT VERBALIZED UNDERSTANDING
[2021-10-29] MEDS ORDERED: CLINDAMYCIN IV (08:22)
== END 2021-10-28 23:22 | disposition home or self-care (01) ==
LOC: ATC 07:32
DX: L08.9 Local infection of the skin and subcutaneous tissue, unspecified (principal)
CPT/HCPCS: 96365

== ENCOUNTER 2021-10-29 07:57 | Day surgery (SDC) | payer OTHER ==
--- NOTE | 2021-10-29 00:17 | NUR ---
PT PRESENTED TO ER ENTRANCE AT 2350, AND AMBULATED INDEPENDENTLY, ACCOMPANIED BY ANGIE, TO THE AMBULATORY INFUSION CLINIC. VITAL SIGNS STABLE, ROOM AIR, LUNGS CLEAR. RN BEGAN INFUSION OF ANTIBIOTICS.
--- NOTE | 2021-10-29 00:58 | NUR ---
PT FINISHED INFUSION, TOLERATED PROCEDURE WELL WITH NO ADVERSE REACTIONS. AMBULATED INDEPENDENTLY WITH AND ALL BELONGINGS, OUT OF HOSPITAL. TRANSPORTED BY PRIVATE VEHICLE.
[2021-10-29] MEDS ORDERED: CLINDAMYCIN IV (08:22)
--- NOTE | 2021-10-29 16:26 | NUR ---
PT WITH NAUSEA WITH EACH DOSE OF CLINDAMYACIN. WILL ATTEMPT TO GET SOMETHING FROM
== END 2021-10-29 12:00 | disposition home or self-care (01) ==
LOC: ATC 07:57
DX: L08.9 Local infection of the skin and subcutaneous tissue, unspecified (principal)
CPT/HCPCS: 96365; J2405

== ENCOUNTER 2021-10-30 05:22 | Day surgery (SDC) | payer OTHER ==
--- NOTE | 2021-10-30 00:38 | NUR ---
ZOFRAN 4 MG IV GIVEN PRIOR TO ANTIBIOTIC INFUSION PER MD ORDER. CLEOCIN STARTED W/O PROBLEMS.
--- NOTE | 2021-10-30 01:08 | NUR ---
ANTIBIOTIC INFUSION COMPLETED, PT. TOLERATED WELL, NO COMPLAINTS, NO ACUTE CHANGES NOTED, PT. LEFT AOX4 & AMBULATORY WITH SPOUSE.
[~2021-10-30 05:22] MED LIST changes: +CLINDAMYCIN IV
== END 2021-10-30 22:44 | disposition home or self-care (01) ==
LOC: ATC 05:22
DX: L08.9 Local infection of the skin and subcutaneous tissue, unspecified (principal)
CPT/HCPCS: J2405

== ENCOUNTER 2021-10-31 01:41 | Day surgery (SDC) | payer OTHER ==
--- NOTE | 2021-10-31 00:25 | NUR ---
PT. CAME IN FOR ANTIBIOTIC INFUSION OF CLINDAMYCIN 900 MG IV, STARTED AT 0020 VIA THE L UPPER ARM POWERGLIDE, NO PROBLEMS NOTED.
--- NOTE | 2021-10-31 00:54 | NUR ---
0048 CLINDAMYCIN INFUSION COMPLETED WITHOUT PROBLEMS,PT. TOLERATED WELL, VSS. PT. LEFT VIA THE W/C WITH SPOUSE.PT. STATE " IT'S OKAY WITHOUT ZOFRAN BEFORE INFUSION", NO ZOFRAN MEDICATION THAT CAME WITH PT. AT THIS TIME.
== END 2021-10-31 23:33 | disposition home or self-care (01) ==
LOC: ATC 01:41
DX: L08.9 Local infection of the skin and subcutaneous tissue, unspecified (principal)
CPT/HCPCS: 96365; 96375; 96376; J2405

== ENCOUNTER 2021-11-01 01:53 | Day surgery (SDC) | payer OTHER ==
--- NOTE | 2021-11-01 00:52 | NUR ---
PT ARRIVED AT 2350. IV ON [place]SON, FLUSHED AND PATENT AT 0000. VITALS TAKEN. VSS. 0005: ZOFRAN WAS GIVEN. IV FLUSHED PRIOR ADMINISTERING ABX/CLEOCIN. CLEOCIN GIVEN AT 0010. PT DENIES ANY ALLERGIC REACTION. REPORTS FEELING ANXIOUS IN THE PAST FEW DAYS, APPEARS TEARY EYED IN ROOM WITH IN BEDSIDE. CLEOCIN STOPED AT 0040. PT DENIES NEW S/SX. TRANSPORTED VIA W/C ASSISTED BY .
== END 2021-11-01 23:04 | disposition home or self-care (01) ==
LOC: ATC 01:53
DX: L08.9 Local infection of the skin and subcutaneous tissue, unspecified (principal)
CPT/HCPCS: 96365; 96375; 96376; J2405

== ENCOUNTER 2021-11-02 00:42 | Day surgery (SDC) | payer OTHER ==
--- NOTE | 2021-11-02 00:13 | NUR ---
PT. CAME IN VIA THE W/C WITH SPOUSE, V/S WNL, ZOFRAN 4 MG IV GIVEN PRIOR TO CLEOCIN INFUSION, L POWERGLIDE INFUSING WELL, NO S/S OF INFECTION NOTED. CLEOCIN INFUSION STARTED AT 0012.PT. AOX4.
--- NOTE | 2021-11-02 00:41 | NUR ---
CLEOCIN INFUSION ENDED AT 0038 W/O COMPLICATIONS,PT. TOLERATED WELL. PT. LEFT VIA THE W/C WITH SPOUSE.
== END 2021-11-02 16:27 | disposition home or self-care (01) ==
LOC: LAB 00:42 → ATC 00:42
DX: L08.9 Local infection of the skin and subcutaneous tissue, unspecified (principal); M65.9 Synovitis and tenosynovitis, unspecified; I10 Essential (primary) hypertension; E03.9 Hypothyroidism, unspecified
CPT/HCPCS: J2405

== ENCOUNTER 2021-12-12 17:15 | Emergency (ER) | payer OTHER ==
[~2021-12-12] VITALS: Ht 175.3 cm; Wt 134.3 kg
[2021-12-12 17:58] LABS: BASOPHILS ABSOLUTE AUTO 0.04 K/mm3 (0.00-0.23); BASOPHILS PERCENT AUTO 0 % (0-2); EOSINOPHILS ABSOLUTE AUTO 0.14 K/mm3 (0.00-0.68); EOSINOPHILS PERCENT AUTO 1 % (0-6); Hematocrit 36.7 % (33.0-51.0); Hemoglobin 11.9 g/dL (11.5-16.0); IMMATURE GRAN ABSOLUTE AUTO 0.04 K/mm3 (0.00-0.10); IMMATURE GRAN PERCENT AUTO 0 % (0-1); LYMPHOCYTES ABSOLUTE AUTO 3.39 K/mm3 (0.84-5.20); LYMPHOCYTES PERCENT AUTO 29 % (21-46); MONOCYTES ABSOLUTE AUTO 0.78 K/mm3 (0.16-1.47); MONOCYTES PERCENT AUTO 7 % (4-13); Mean Corpuscular HGB 28.8 pg (26.0-34.0); Mean Corpuscular HGB Conc 32.4 g/dL (31.5-36.5); Mean Corpuscular Volume 89 fL (80-100); Mean Platelet Volume 10.9 fL (9.1-12.4); NEUTROPHILS PERCENT AUTO 62 % (41-73); Platelet Count 266 K/mm3 (150-400); RDW Standard Deviation 42.2 fL (35.1-46.3); Red Blood Cell Count 4.13 M/mm3 (3.80-5.20); White Blood Cell Count 11.59 K/mm3 (4.00-11.30)
[2021-12-12 18:08] LABS: Alanine Aminotransfer (ALT/SGP 34 U/L (12-78); Albumin, Blood 3.7 g/dL (3.4-5.0); Alk Phos 68 U/L (50-136); Anion Gap 6 mmol/L (6-16); Aspartate Aminotrans (AST/SGOT 17 U/L (12-37); Bilirubin, Total 0.2 mg/dL (0.1-1.0); Blood Urea Nitrogen 14 mg/dL (8-24); Bun/Creatinine Ratio 14.2 (12.0-20.0); CO2, Blood 26 mmol/L (21-32); Calcium, Blood 9.3 mg/dL (8.5-10.1); Chloride, Blood 107 mmol/L (98-108); Creatinine, Blood 0.99 mg/dL (0.40-1.00); Globulin, Blood 3.7 g/dL (2.2-4.0); Glomerular Filtration Rate >60 (60-); Glucose, Blood 98 mg/dL (70-99); Potassium, Blood 4.1 mmol/L (3.5-5.5); Sodium, Blood 139 mmol/L (136-145); Total Protein, Blood 7.4 g/dL (6.4-8.2)
[2021-12-12] MEDS ORDERED: Cleocin HCl300 MG PO (19:54)
== END 2021-12-12 20:35 | disposition home or self-care (01) ==
LOC: ER 17:15
PROVIDERS: Physician Assistant
DX: T81.41XA Infection following a procedure, superficial incisional surgical site, initial encounter (principal); Z79.899 Other long term (current) drug therapy; Z79.84 Long term (current) use of oral hypoglycemic drugs; Y83.8 Other surgical procedures as the cause of abnormal reaction of the patient, or of later complication, without mention of misadventure at the time of the procedure
CPT/HCPCS: 36415; 73130; 80053; 85025; 86140

== ENCOUNTER 2022-01-03 07:12 | Emergency (ER) | payer OTHER ==
[~2022-01-03] VITALS: Ht 175.3 cm; Wt 138.3 kg
[~2022-01-03 07:12] MED LIST changes: +Cleocin HCl300 MG PO
[2022-01-03] MEDS ORDERED: INDO50 PO (08:33)
== END 2022-01-03 08:53 | disposition home or self-care (01) ==
LOC: ER 07:12
DX: M79.675 Pain in left toe(s) (principal); E03.9 Hypothyroidism, unspecified; I12.9 Hypertensive chronic kidney disease with stage 1 through stage 4 chronic kidney disease, or unspecified chronic kidney disease; N18.9 Chronic kidney disease, unspecified; Z79.899 Other long term (current) drug therapy; Z79.84 Long term (current) use of oral hypoglycemic drugs
CPT/HCPCS: 73630; A9270

== ENCOUNTER 2022-04-20 22:13 | Emergency (ER) | payer OTHER ==
[~2022-04-20] VITALS: Ht 175.3 cm; Wt 136.1 kg
[~2022-04-20 22:13] MED LIST changes: +INDO50 PO
[2022-04-21 01:58] LABS: BASOPHILS ABSOLUTE AUTO 0.04 K/mm3 (0.00-0.23); BASOPHILS PERCENT AUTO 0 % (0-2); EOSINOPHILS ABSOLUTE AUTO 0.14 K/mm3 (0.00-0.68); EOSINOPHILS PERCENT AUTO 1 % (0-6); Hemoglobin 11.1 g/dL (11.5-16.0); IMMATURE GRAN ABSOLUTE AUTO 0.08 K/mm3 (0.00-0.10); IMMATURE GRAN PERCENT AUTO 1 % (0-1); LYMPHOCYTES ABSOLUTE AUTO 2.88 K/mm3 (0.84-5.20); LYMPHOCYTES PERCENT AUTO 26 % (21-46); MONOCYTES ABSOLUTE AUTO 0.87 K/mm3 (0.16-1.47); MONOCYTES PERCENT AUTO 8 % (4-13); Mean Corpuscular HGB 28.6 pg (26.0-34.0); Mean Corpuscular HGB Conc 32.6 g/dL (31.5-36.5); Mean Corpuscular Volume 88 fL (80-100); NEUTROPHILS ABSOLUTE AUTO 6.96 K/mm3 (1.96-9.15); NEUTROPHILS PERCENT AUTO 63 % (41-73); Platelet Count 248 K/mm3 (150-400); RDW Coefficient Variation 13.7 % (11.7-14.2); RDW Standard Deviation 43.9 fL (35.1-46.3); Red Blood Cell Count 3.88 M/mm3 (3.80-5.20); White Blood Cell Count 10.97 K/mm3 (4.00-11.30)
[2022-04-21 02:24] LABS: Bun/Creatinine Ratio 16.8 (12.0-20.0); C-Reactive Protein, High Sens. 13.8 mg/L (0.000-3.000); Calcium, Blood 9.1 mg/dL (8.5-10.1); Creatinine, Blood 1.07 mg/dL (0.40-1.00); Potassium, Blood 3.9 mmol/L (3.5-5.5)
[2022-04-21] MEDS ORDERED: INDO50 PO (03:04)
[2022-04-21] MEDS ORDERED: SULTRIDS PO (03:04)
== END 2022-04-21 03:24 | disposition home or self-care (01) ==
LOC: ER 22:13
PROVIDERS: Emergency Medicine
DX: M1A.9XX1 Chronic gout, unspecified, with tophus (tophi) (principal); E03.9 Hypothyroidism, unspecified; I10 Essential (primary) hypertension; Z79.899 Other long term (current) drug therapy; Z79.84 Long term (current) use of oral hypoglycemic drugs
CPT/HCPCS: 36415; 80048; 85025; 85651; 86141; 96374; 96375; 99283-25; A9270; J2405; J3010; J7512

== ENCOUNTER → 2022-09-05 | Outpatient (CLI) | payer BC, OTHER ==
[~2022-09-05] MED LIST changes: +AMOCLA875 PO; +GABA100 PO; +ONDA4ODT; +ONDA4ODT MM
== END ==
LOC: LAB SHORT 16:53 → LAB 16:53
DX: M25.561 Pain in right knee (principal)
CPT/HCPCS: 84550

== ENCOUNTER 2022-11-06 11:05 | Emergency (ER) | payer BC, OTHER ==
[~2022-11-06] VITALS: Ht 175.3 cm; Wt 140.2 kg
== END 2022-11-06 13:36 | disposition home or self-care (01) ==
LOC: ER 11:05
DX: M71.22 Synovial cyst of popliteal space [Baker], left knee (principal); E03.9 Hypothyroidism, unspecified; Z79.899 Other long term (current) drug therapy
CPT/HCPCS: 93971; 99283-25

== ENCOUNTER 2022-11-30 15:31 | Inpatient (IN) | payer BC, OTHER ==
[~2022-11-30] VITALS: Ht 205.7 cm; Wt 142.2 kg
[2022-11-30 16:02] LABS: BASOPHILS ABSOLUTE AUTO 0.05 K/mm3 (0.00-0.23); BASOPHILS PERCENT AUTO 1 % (0-2); EOSINOPHILS ABSOLUTE AUTO 0.19 K/mm3 (0.00-0.68); EOSINOPHILS PERCENT AUTO 2 % (0-6); Hematocrit 34.5 % (33.0-51.0); Hemoglobin 11.3 g/dL (11.5-16.0); IMMATURE GRAN ABSOLUTE AUTO 0.04 K/mm3 (0.00-0.10); IMMATURE GRAN PERCENT AUTO 0 % (0-1); LYMPHOCYTES ABSOLUTE AUTO 2.87 K/mm3 (0.84-5.20); LYMPHOCYTES PERCENT AUTO 28 % (21-46); MONOCYTES ABSOLUTE AUTO 0.52 K/mm3 (0.16-1.47); MONOCYTES PERCENT AUTO 5 % (4-13); Mean Corpuscular HGB 28.6 pg (26.0-34.0); Mean Corpuscular HGB Conc 32.8 g/dL (31.5-36.5); Mean Corpuscular Volume 87 fL (80-100); Mean Platelet Volume 10.5 fL (9.1-12.4); NEUTROPHILS ABSOLUTE AUTO 6.78 K/mm3 (1.96-9.15); NEUTROPHILS PERCENT AUTO 65 % (41-73); Platelet Count 300 K/mm3 (150-400); RDW Standard Deviation 44.7 fL (35.1-46.3); Red Blood Cell Count 3.95 M/mm3 (3.80-5.20); White Blood Cell Count 10.45 K/mm3 (4.00-11.30)
[2022-11-30 16:19] LABS: C-REACTIVE PROTEIN, EXT RANGE 1.94 mg/dL (0.000-0.300)
[2022-11-30 16:22] LABS: Albumin/Globulin Ratio 1.1 (0.8-1.8); Bilirubin, Total 0.2 mg/dL (0.1-1.0); Bun/Creatinine Ratio 15.9 (12.0-20.0); Calcium, Blood 8.9 mg/dL (8.5-10.1); Creatinine, Blood 1.32 mg/dL (0.40-1.00); Globulin, Blood 3.8 g/dL (2.2-4.0); Potassium, Blood 3.9 mmol/L (3.5-5.5); Total Protein, Blood 7.8 g/dL (6.4-8.2)
[2022-12-01 01:56] VITALS: BP 141/87
--- NOTE | 2022-12-01 04:34 | NUR ---
SHIFT SUMMARY 32 YR F ADMITTED ON 12/01/22 FOR CELLULITIS OF RIGHT THUMB AND INDEX FINGER. PT C/O PAIN IN RIGHT HAND HAND AND IS GETTING PAIN MEDS PER EMAR. CURRENTLY RECEIVING VANCOMYCIN. SHE IS A&O X 4 AND OTHER THAN THE CELLULITIS IN HER HAND, THERE ARE NO OTHER MEDICAL ISSUES TO ADDRESS. SHE IS INDEPENDANT IN THE ROOM AND CAN MAKE HER NEEDS KNOWN. SHE HAS BEEN SLEEPING SINCE SHORTLY AFTER HER ARRIVAL TO THIS UNIT.
[2022-12-01 05:56] LABS: Hematocrit 30.2 % (33.0-51.0); Hemoglobin 9.8 g/dL (11.5-16.0); Mean Corpuscular HGB 28.3 pg (26.0-34.0); Mean Corpuscular HGB Conc 32.5 g/dL (31.5-36.5); Mean Corpuscular Volume 87 fL (80-100); Mean Platelet Volume 10.9 fL (9.1-12.4); Platelet Count 227 K/mm3 (150-400); RDW Coefficient Variation 14.1 % (11.7-14.2); RDW Standard Deviation 44.1 fL (35.1-46.3); Red Blood Cell Count 3.46 M/mm3 (3.80-5.20); White Blood Cell Count 8.86 K/mm3 (4.00-11.30)
[2022-12-01 06:37] LABS: Bun/Creatinine Ratio 18.2 (12.0-20.0); Calcium, Blood 8.1 mg/dL (8.5-10.1); Creatinine, Blood 0.99 mg/dL (0.40-1.00); Potassium, Blood 3.8 mmol/L (3.5-5.5)
[2022-12-01 07:06] VITALS: BP 139/64
[2022-12-01 15:21] VITALS: BP 156/79
--- NOTE | 2022-12-01 18:16 | NUR ---
SHIFT SUMMARY A&O X 4. VSS. MEDICATED PT FOR C/O PAIN IN R HAND PER EMAR WITH GOOD RELIEF AFTER MD PROVIDED AN ORDER FOR A STRONGER PAIN MED. NEW PIV PLACED IN L FA EARLIER IN SHIFT, INFILTRATED AT CHANGE OF SHIFT. PT WILL LIKELY REQUIRE A POWER GLIDE TO CONTINUE HER IV VANCO.PT IS INDEPENDENT IN THE ROOM FOR RESTROOM USE. IS PLEASANT & COOPERATIVE WITH ALL CARE.
[2022-12-01 19:24] VITALS: BP 163/96
--- NOTE | 2022-12-01 19:31 | NUR ---
POWER GLIDE PLACED. AT CHANGE OF SHIFT PIV INFILTRATED AND WOULD NOT FLUSH. POWER GLIDE PLACED IN L UPPER ARM BY RUBEN RN. VANCO INFUSING. PHARM NOTIFIED OF LATE START TIME FOR VANCO D/T LOSS OF PIV TO TIME TROUGH ACCORDINGLY. PT IS A DIFFICULT IV START.
[2022-12-02 02:37] VITALS: BP 173/80
[2022-12-02 03:14] LABS: BASOPHILS ABSOLUTE AUTO 0.02 K/mm3 (0.00-0.23); BASOPHILS PERCENT AUTO 0 % (0-2); EOSINOPHILS ABSOLUTE AUTO 0.18 K/mm3 (0.00-0.68); EOSINOPHILS PERCENT AUTO 2 % (0-6); Hematocrit 30.9 % (33.0-51.0); IMMATURE GRAN ABSOLUTE AUTO 0.03 K/mm3 (0.00-0.10); IMMATURE GRAN PERCENT AUTO 0 % (0-1); LYMPHOCYTES ABSOLUTE AUTO 2.07 K/mm3 (0.84-5.20); LYMPHOCYTES PERCENT AUTO 21 % (21-46); MONOCYTES ABSOLUTE AUTO 0.64 K/mm3 (0.16-1.47); MONOCYTES PERCENT AUTO 7 % (4-13); Mean Corpuscular HGB 28.5 pg (26.0-34.0); Mean Corpuscular HGB Conc 32.4 g/dL (31.5-36.5); Mean Corpuscular Volume 88 fL (80-100); Mean Platelet Volume 10.9 fL (9.1-12.4); NEUTROPHILS ABSOLUTE AUTO 6.95 K/mm3 (1.96-9.15); NEUTROPHILS PERCENT AUTO 70 % (41-73); Platelet Count 242 K/mm3 (150-400); RDW Coefficient Variation 13.7 % (11.7-14.2); RDW Standard Deviation 44.8 fL (35.1-46.3); Red Blood Cell Count 3.51 M/mm3 (3.80-5.20); White Blood Cell Count 9.89 K/mm3 (4.00-11.30)
[2022-12-02 03:41] LABS: Albumin, Blood 3.1 g/dL (3.4-5.0); Bilirubin, Total 0.2 mg/dL (0.1-1.0); Bun/Creatinine Ratio 15.6 (12.0-20.0); Creatinine, Blood 0.83 mg/dL (0.40-1.00); Globulin, Blood 3.2 g/dL (2.2-4.0); Percent Saturation 8.1 % (15.0-50.0); Total Protein, Blood 6.3 g/dL (6.4-8.2)
[2022-12-02 03:52] LABS: Vancomycin, Trough 23.4 ug/mL (5.0-10.0)
--- NOTE | 2022-12-02 06:42 | NUR ---
PT REPORTS INCREASING PAIN AND PAIN SPREADING UP TO WRIST FROM HAND. MD ORDERED FENTANYL, MORE EFFECTIVE THAN 5 MG OXYCODONE. VANCO TROUGH WAS ELEVATED, ANOTHER TROUGH ORDERED FOR [facility]. AO, INDEPENDENT, PLEASANT, VSS.
[2022-12-02 08:03] VITALS: BP 185/106
[2022-12-02 08:42] VITALS: BP 168/94
[2022-12-02 15:25] VITALS: BP 175/97
[2022-12-02 16:44] VITALS: BP 156/97
--- NOTE | 2022-12-02 17:21 | NUR ---
SHIFT SUMMARY PATIENT WITH PAIN AND NAUSEA/VOMITING TODAY, MEDICATED PER EMAR WITH RELIEF OF NAUSEA/VOMITING. PAIN LEVEL RELIEVED FROM 10/10 TO 3/10 PER EMAR BUT QUICKLY CLIMBS BACK UP TO 8/10 OR HIGHER. WILL CONTINUE TO MONITOR.
--- NOTE | 2022-12-02 17:30 | NUR ---
THIS ANIMAL CARE PROVIDER HAS REVIEWED ALL NOTES AND ASSESSMENTS BY MONICA MIREYA.
[2022-12-02 19:28] VITALS: BP 165/97
[2022-12-03 04:21] VITALS: BP 132/75
[2022-12-03 06:14] LABS: BASOPHILS ABSOLUTE AUTO 0.01 K/mm3 (0.00-0.23); BASOPHILS PERCENT AUTO 0 % (0-2); EOSINOPHILS PERCENT AUTO 0 % (0-6); Hematocrit 30.3 % (33.0-51.0); Hemoglobin 10.1 g/dL (11.5-16.0); IMMATURE GRAN PERCENT AUTO 1 % (0-1); LYMPHOCYTES ABSOLUTE AUTO 1.64 K/mm3 (0.84-5.20); LYMPHOCYTES PERCENT AUTO 12 % (21-46); MONOCYTES ABSOLUTE AUTO 0.62 K/mm3 (0.16-1.47); MONOCYTES PERCENT AUTO 5 % (4-13); Mean Corpuscular HGB 28.8 pg (26.0-34.0); Mean Corpuscular HGB Conc 33.3 g/dL (31.5-36.5); Mean Corpuscular Volume 86 fL (80-100); Mean Platelet Volume 11.3 fL (9.1-12.4); NEUTROPHILS ABSOLUTE AUTO 11.34 K/mm3 (1.96-9.15); NEUTROPHILS PERCENT AUTO 83 % (41-73); Platelet Count 238 K/mm3 (150-400); RDW Coefficient Variation 13.6 % (11.7-14.2); RDW Standard Deviation 42.8 fL (35.1-46.3); Red Blood Cell Count 3.51 M/mm3 (3.80-5.20); White Blood Cell Count 13.71 K/mm3 (4.00-11.30)
[2022-12-03 06:42] LABS: Bun/Creatinine Ratio 18.1 (12.0-20.0); Calcium, Blood 8.4 mg/dL (8.5-10.1); Creatinine, Blood 0.78 mg/dL (0.40-1.00); Potassium, Blood 3.9 mmol/L (3.5-5.5)
[2022-12-03 08:37] VITALS: BP 122/67
[2022-12-03 15:36] VITALS: BP 147/89
--- NOTE | 2022-12-03 18:24 | NUR ---
THIS BIOMED TECH HAS REVIEWED ASSESSMENTS BY RN MIREYA AND AGREES WITH THEM.
--- NOTE | 2022-12-03 18:24 | NUR ---
SHIFT SUMMARY. PAIN CONTROLLED WITH ONLY ORAL MEDICATIONS TODAY. REDNESS DECREASED TO HAND. SWELLIN ALSO DECREASED. WILL CONTINUE TO MONITOR.
[2022-12-03] MEDS ORDERED: Acetaminophen325 M1 PO (18:53)
[2022-12-03] MEDS ORDERED: AMLO5 PO (18:54)
[2022-12-03] MEDS ORDERED: ALLO300 PO (18:54)
[2022-12-03] MEDS ORDERED: CYMBALTA60 M1 PO (19:01)
[2022-12-03] MEDS ORDERED: COLCHICINE0.6 MG PO (19:01)
[2022-12-03] MEDS ORDERED: LABE100 PO (19:03)
--- NOTE | 2022-12-03 19:48 | NUR ---
DISCHARGE INSTRUCTIONS AND MEDICATIONS REVIEWED WITH PATIENT. NO QUESTIONS OR CONCERNS. POWER GLIDE REMOVED, CATHETER TIP INTACT, PRESSURE DRSG APPLIED. PT DEPARTED FROM [facility] VIA W/C WITH ALL PERSONAL BELONGINGS.
== END 2022-12-03 19:47 | disposition home or self-care (01) | DRG 554 ==
LOC: ER 15:31 → MEDS 15:32
PROVIDERS: Internal Medicine; Physician Assistant; Student in an Organized Health Care Education/Training Program; ADMIT Internal Medicine
DX: M10.9 Gout, unspecified (principal); N17.9 Acute kidney failure, unspecified; Q60.0 Renal agenesis, unilateral; F41.3 Other mixed anxiety disorders; E03.9 Hypothyroidism, unspecified; E28.2 Polycystic ovarian syndrome; I12.9 Hypertensive chronic kidney disease with stage 1 through stage 4 chronic kidney disease, or unspecified chronic kidney disease; N18.30 Chronic kidney disease, stage 3 unspecified; D63.1 Anemia in chronic kidney disease; E66.9 Obesity, unspecified; Z68.31 Body mass index [BMI] 31.0-31.9, adult; Z90.49 Acquired absence of other specified parts of digestive tract; Z98.1 Arthrodesis status; Z98.890 Other specified postprocedural states; Z79.890 Hormone replacement therapy; Z79.899 Other long term (current) drug therapy
CPT/HCPCS: 36415; 73201; 80048; 80053; 80202; 82728; 83540; 83550; 83605; 84550; 84703; 85025; 85027; 85651; 86140; 96365-59; 96372; 96375; 96375-59; 96376; 99285-25; A9270; C1751; G0378; J1170; J1650; J1885; J2930; J3010; J3370; J7030; J7050; Q9967

== ENCOUNTER 2023-02-05 05:50 | Emergency (ER) | payer BC, OTHER ==
[~2023-02-05] VITALS: Ht 175.3 cm; Wt 127.0 kg
[~2023-02-05 05:50] MED LIST changes: +AMLO5 PO; +Acetaminophen325 M1 PO; +CYMBALTA60 M1 PO
[2023-02-05 06:54] VITALS: BP 128/61
== END 2023-02-05 06:55 | disposition home or self-care (01) ==
LOC: ER 05:50
DX: M65.4 Radial styloid tenosynovitis [de Quervain] (principal); M25.521 Pain in right elbow; I10 Essential (primary) hypertension; E03.9 Hypothyroidism, unspecified; Z79.899 Other long term (current) drug therapy
CPT/HCPCS: 29125; 99283-25

== ENCOUNTER 2023-02-08 10:22 | Emergency (ER) | payer BC, OTHER ==
[~2023-02-08] VITALS: Ht 175.3 cm; Wt 126.5 kg
[2023-02-08 10:54] LABS: BASOPHILS ABSOLUTE AUTO 0.04 K/mm3 (0.00-0.23); BASOPHILS PERCENT AUTO 0 % (0-2); EOSINOPHILS ABSOLUTE AUTO 0.26 K/mm3 (0.00-0.68); EOSINOPHILS PERCENT AUTO 2 % (0-6); Hematocrit 37.3 % (33.0-51.0); Hemoglobin 12.1 g/dL (11.5-16.0); IMMATURE GRAN ABSOLUTE AUTO 0.06 K/mm3 (0.00-0.10); IMMATURE GRAN PERCENT AUTO 1 % (0-1); LYMPHOCYTES ABSOLUTE AUTO 2.36 K/mm3 (0.84-5.20); LYMPHOCYTES PERCENT AUTO 18 % (21-46); MONOCYTES ABSOLUTE AUTO 1.02 K/mm3 (0.16-1.47); MONOCYTES PERCENT AUTO 8 % (4-13); Mean Corpuscular HGB 27.9 pg (26.0-34.0); Mean Corpuscular HGB Conc 32.4 g/dL (31.5-36.5); Mean Corpuscular Volume 86 fL (80-100); Mean Platelet Volume 12.4 fL (9.1-12.4); NEUTROPHILS ABSOLUTE AUTO 9.57 K/mm3 (1.96-9.15); NEUTROPHILS PERCENT AUTO 72 % (41-73); Platelet Count 267 K/mm3 (150-400); RDW Coefficient Variation 14.6 % (11.7-14.2); RDW Standard Deviation 46.5 fL (35.1-46.3); Red Blood Cell Count 4.34 M/mm3 (3.80-5.20); White Blood Cell Count 13.31 K/mm3 (4.00-11.30)
[2023-02-08 11:20] LABS: Albumin, Blood 3.3 g/dL (3.4-5.0); Albumin/Globulin Ratio 0.7 (0.8-1.8); Bilirubin, Total 0.6 mg/dL (0.1-1.0); Bun/Creatinine Ratio 13.2 (12.0-20.0); Calcium, Blood 9.3 mg/dL (8.5-10.1); Creatinine, Blood 0.98 mg/dL (0.40-1.00); Globulin, Blood 4.8 g/dL (2.2-4.0); Potassium, Blood 3.5 mmol/L (3.5-5.5); Total Protein, Blood 8.1 g/dL (6.4-8.2)
[2023-02-08] MEDS ORDERED: Norco 5-325 Ta1 EACH PO (15:24)
[2023-02-08] MEDS ORDERED: IBUP800 PO (15:24)
[2023-02-08] MEDS ORDERED: METPRE4DP PO (15:24)
[2023-02-08 16:07] VITALS: BP 120/71
== END 2023-02-08 16:10 | disposition home or self-care (01) ==
LOC: ER 10:22
PROVIDERS: Physician Assistant
DX: M54.10 Radiculopathy, site unspecified (principal); I10 Essential (primary) hypertension; E03.9 Hypothyroidism, unspecified; Z79.899 Other long term (current) drug therapy
CPT/HCPCS: 71260; 80053; 85025; 93005; 93010; 96374-59; 96375-59; 99284-25; J1170; J1885; J2405; J7030; Q9967

== ENCOUNTER 2023-02-27 11:21 | Emergency (ER) | payer BC, OTHER ==
[~2023-02-27] VITALS: Ht 175.3 cm; Wt 122.0 kg
[~2023-02-27 11:21] MED LIST changes: +METPRE4DP PO
[2023-02-27 11:49] VITALS: BP 107/74
[2023-02-27] MEDS ORDERED: Norco 7.5-3251 EACH PO (15:15)
[2023-03-05] MEDS ORDERED: Voltaren100 GM TOP (13:19)
[2023-03-05] MEDS ORDERED: ONDA4ODT MM (13:21)
[2023-03-05] MEDS ORDERED: Percocet 5-3251 EACH PO (14:06)
== END 2023-02-27 15:28 | disposition home or self-care (01) ==
LOC: ER 11:21
DX: M79.662 Pain in left lower leg (principal); M25.562 Pain in left knee; Z79.899 Other long term (current) drug therapy; Z79.52 Long term (current) use of systemic steroids; E03.9 Hypothyroidism, unspecified; M10.9 Gout, unspecified; I10 Essential (primary) hypertension
CPT/HCPCS: 93971; 99283-25; A9270

== ENCOUNTER 2024-01-23 12:03 | Emergency (ER) | payer BC, OTHER ==
[~2024-01-23] VITALS: Ht 175.3 cm; Wt 102.1 kg
[~2024-01-23 12:03] MED LIST changes: +Norco 7.5-3251 EACH PO
[2024-01-23 13:10] LABS: Influenza A, PCR NEGATIVE (NEGATIVE); Influenza B, PCR NEGATIVE (NEGATIVE); Resp Syncytial Virus, PCR NEGATIVE (NEGATIVE); SARS-Cov-2 (COVID-19) PCR, MMC NEGATIVE (NEGATIVE)
[2024-01-23 13:24] LABS: BASOPHILS ABSOLUTE AUTO 0.05 K/mm3 (0.00-0.23); BASOPHILS PERCENT AUTO 0 % (0-2); EOSINOPHILS ABSOLUTE AUTO 0.13 K/mm3 (0.00-0.68); EOSINOPHILS PERCENT AUTO 1 % (0-6); Hematocrit 37.1 % (33.0-51.0); Hemoglobin 12.3 g/dL (11.5-16.0); IMMATURE GRAN ABSOLUTE AUTO 0.05 K/mm3 (0.00-0.10); IMMATURE GRAN PERCENT AUTO 0 % (0-1); LYMPHOCYTES PERCENT AUTO 15 % (21-46); MONOCYTES ABSOLUTE AUTO 0.76 K/mm3 (0.16-1.47); MONOCYTES PERCENT AUTO 5 % (4-13); Mean Corpuscular HGB 29.9 pg (26.0-34.0); Mean Corpuscular HGB Conc 33.2 g/dL (31.5-36.5); Mean Corpuscular Volume 90 fL (80-100); Mean Platelet Volume 11.4 fL (9.1-12.4); NEUTROPHILS ABSOLUTE AUTO 12.12 K/mm3 (1.96-9.15); NEUTROPHILS PERCENT AUTO 79 % (41-73); Platelet Count 256 K/mm3 (150-400); RDW Coefficient Variation 13.3 % (11.7-14.2); RDW Standard Deviation 43.9 fL (35.1-46.3); Red Blood Cell Count 4.11 M/mm3 (3.80-5.20); White Blood Cell Count 15.41 K/mm3 (4.00-11.30)
[2024-01-23 13:52] LABS: Albumin, Blood 3.9 g/dL (3.4-5.0); Albumin/Globulin Ratio 1.1 (0.8-1.8); Bilirubin, Total 0.3 mg/dL (0.1-1.0); Bun/Creatinine Ratio 15.3 (12.0-20.0); Calcium, Blood 9.3 mg/dL (8.5-10.1); Creatinine, Blood 0.78 mg/dL (0.40-1.00); Globulin, Blood 3.5 g/dL (2.2-4.0); Potassium, Blood 4.1 mmol/L (3.5-5.5); Total Protein, Blood 7.4 g/dL (6.4-8.2)
[2024-01-23] MEDS ORDERED: Ondansetron HCl 2 MG / ML 2ML Vial IV ONE (17:10)
[2024-01-23] MEDS ORDERED: Morphine Sulfate 4 MG/1 ML Injection IV ONE (17:10)
[2024-01-23] MEDS ORDERED: NS 1,000 ML IV SCH (17:10)
[2024-01-23 17:26] LABS: Source, Urine Clean Catch
[2024-01-23 17:29] LABS: Appearance, Urine Clear (Clear); Bilirubin, Urine Neg (Neg); Blood, Urine Neg (Neg); Color, Urine Yellow (P-Yellow); Glucose Qualitative, Urine Neg (Neg); Ketones, Urine Neg (Neg); Leukocyte Esterase, Urine 1+ (Neg); Nitrite, Urine Neg (Neg); Protein, Urine 2+ (Neg); Urobilinogen, Urine NORM (Normal)
[2024-01-23 17:44] LABS: Bacteria Mod /hpf; Red Blood Cells, Urine 0-2 /hpf (0-2); Squamous Epithelial Cells Few /hpf (Few)
[2024-01-23] MEDS ORDERED: CefTRIAXone Sodium 1,000 MG in NS 100 ML IV ONE (18:05)
[2024-01-23] MEDS ORDERED: Meclizine HCl 25 MG Tab PO ONE (18:05)
[2024-01-23] MEDS ORDERED: HYDROmorphone HCl/Pf 1MG SYR IV ONE (19:00)
[2024-01-23] MEDS ORDERED: MECL25 PO (19:54)
[2024-01-23] MEDS ORDERED: CEFD300 PO (19:54)
[2024-01-23 20:00] VITALS: BP 130/65
== END 2024-01-23 20:08 | disposition home or self-care (01) ==
LOC: ER 12:03
PROVIDERS: Student in an Organized Health Care Education/Training Program
DX: N12 Tubulo-interstitial nephritis, not specified as acute or chronic (principal); R42 Dizziness and giddiness; N26.1 Atrophy of kidney (terminal); F41.9 Anxiety disorder, unspecified; E03.9 Hypothyroidism, unspecified; I10 Essential (primary) hypertension; F32.A Depression, unspecified; Z79.899 Other long term (current) drug therapy
CPT/HCPCS: 0241U; 80053; 81001; 81025; 85025; 87086; 96361; 96365; 96375; 99284-25; A9270; J0696; J1170; J2270; J2405; J7030

== ENCOUNTER → 2025-02-19 | Outpatient (CLI) | payer BC, OTHER ==
[~2025-02-19] MED LIST changes: +CEFD300 PO; +MECL25 PO
== END ==
LOC: LAB SHORT 11:39 → LAB 11:39
DX: Z34.83 Encounter for supervision of other normal pregnancy, third trimester (principal)
CPT/HCPCS: 87081; 87150

== ENCOUNTER 2025-03-06 08:58 | Inpatient (IN) | payer BC, OTHER ==
[~2025-03-06] VITALS: Ht 175.3 cm; Wt 120.4 kg
[2025-03-06] VITALS (16 sets, daily range): BP systolic 94–173; BP diastolic 53–81
[2025-03-06] MEDS ORDERED: FentaNYL 2mcg/ml-Bup 0.1% Epd 250 ML EPI PRN (09:50)
[2025-03-06] MEDS ORDERED: Carboprost Tromethamine 250 MCG/ML 1ML Amp IM PRN (09:50)
[2025-03-06] MEDS ORDERED: Oxytocin 10 Unit / ML Vial IM PRN (09:50)
[2025-03-06] MEDS ORDERED: OXYTOCIN/RINGER'S LACTATE 500 ML IV PRN (09:50)
[2025-03-06] MEDS ORDERED: ePHEDrine Sulfate 50 MG/ML 1ML Injection XX PRN (09:50)
[2025-03-06] MEDS ORDERED: Ondansetron HCl 2 MG / ML 2ML Vial IV PRN ×3 (09:50→23:40)
[2025-03-06] MEDS ORDERED: Methylergonovine Maleate 0.2MG / ML 1ML Amp IM PRN (09:50)
[2025-03-06] MEDS ORDERED: Tranexamic Acid 100 ML IV SCH (10:00)
[2025-03-06] MEDS ORDERED: Penicillin G Potassium 5,000,000 UNITS in NS 250 ML IV ONE (10:00)
[2025-03-06 10:01] LABS: BASOPHILS ABSOLUTE AUTO 0.03 K/mm3 (0.00-0.23); BASOPHILS PERCENT AUTO 0 % (0-2); EOSINOPHILS ABSOLUTE AUTO 0.03 K/mm3 (0.00-0.68); EOSINOPHILS PERCENT AUTO 0 % (0-6); Hematocrit 31.1 % (33.0-51.0); Hemoglobin 10.6 g/dL (11.5-16.0); IMMATURE GRAN ABSOLUTE AUTO 0.05 K/mm3 (0.00-0.10); IMMATURE GRAN PERCENT AUTO 0 % (0-1); LYMPHOCYTES ABSOLUTE AUTO 1.90 K/mm3 (0.84-5.20); LYMPHOCYTES PERCENT AUTO 14 % (21-46); MONOCYTES ABSOLUTE AUTO 0.85 K/mm3 (0.16-1.47); MONOCYTES PERCENT AUTO 6 % (4-13); Mean Corpuscular HGB Conc 34.1 g/dL (31.5-36.5); Mean Corpuscular Volume 93 fL (80-100); NEUTROPHILS ABSOLUTE AUTO 11.01 K/mm3 (1.96-9.15); NEUTROPHILS PERCENT AUTO 79 % (41-73); NRBC ABSOLUTE 0.00 K/mm3 (0.00-0.02); NRBC Auto 0.0 /100 WBC (0.0-0.2); Platelet Count 145 K/mm3 (150-400); RDW Coefficient Variation 14.2 % (11.7-14.2); RDW Standard Deviation 48.1 fL (35.1-46.3)
[2025-03-06] MEDS ORDERED: FentaNYL Citrate 50 MCG/ML 2 ML Injection IV PRN ×2 (10:05→22:10)
[2025-03-06] MEDS ORDERED: ADALIMUMAB SC (11:39)
[2025-03-06] MEDS ORDERED: Penicillin G Potassium 2,500,000 UNITS in Dextrose 5% 100 ML IV SCH (14:30)
[2025-03-06] MEDS ORDERED: FentaNYL Citrate 50 MCG/ML 2 ML Injection ONE ×2 (18:14→21:43)
[2025-03-06] MEDS ORDERED: Citric Acid/Sodium Citrate 30 ML BTL PO SCH (21:10)
[2025-03-06] MEDS ORDERED: CeFAZolin Sodium 3,000 MG in NS 100 ML IV SCH (21:10)
[2025-03-06] MEDS ORDERED: Metoclopramide HCl 5MG / ML 2ML Vial IV ONE (21:10)
[2025-03-06] MEDS ORDERED: Lidocaine HCl 2% 10 ML SDA ONE (21:42)
[2025-03-06] MEDS ORDERED: Oxytocin 10 Unit / ML Vial ONE (21:58)
[2025-03-06] MEDS ORDERED: HYDROmorphone HCl/Pf 1MG SYR IV PRN (22:10)
[2025-03-06] MEDS ORDERED: Phenylephrine HCl 100 MCG/ML-NS 10MLSYR (1MG/10ML) ONE (22:32)
[2025-03-06] MEDS ORDERED: Bupivacaine HCl 0.25% 30 ML Injection ONE (23:00)
[2025-03-06] MEDS ORDERED: Ketorolac Tromethamine 30mg Vial ONE (23:01)
[2025-03-06] MEDS ORDERED: Tranexamic Acid 100 ML IV ONE (23:08)
[2025-03-06] MEDS ORDERED: Ondansetron HCl 2 MG / ML 2ML Vial ONE (23:22)
[2025-03-06 23:29] LABS: PCO2 Cord - Arterial 57.7 mmHg (40-50); pH Cord - Arterial 7.20 (7.28-7.35)
[2025-03-06 23:30] LABS: PCO2 Cord - Venous 48.8 mmHg (40-50); PO2 Cord - Arterial < 14.0 mmHg (16-20); PO2 Cord - Venous 18.7 mmHg (28-32); pH Umbilical Cord - Venous 7.25 (7.26-7.35)
[2025-03-06] MEDS ORDERED: Morphine Sulfate 4 MG/1 ML Injection IV PRN (23:40)
[2025-03-06] MEDS ORDERED: OxyCODONE 5 mg/Acetamin 325 mg TABLET PO PRN (23:45)
[2025-03-06] MEDS ORDERED: Magnesium Hydroxide Conc 10 ML UDC PO PRN (23:45)
[2025-03-06] MEDS ORDERED: OXYTOCIN/RINGER'S LACTATE 500 ML IV SCH (23:50)
[2025-03-06] MEDS ORDERED: Rho(D) Immune Globulin 300 MCG / SYR IM ONE (23:50)
[2025-03-07] VITALS (22 sets, daily range): BP systolic 110–145; BP diastolic 58–86
[2025-03-07] MEDS ORDERED: Ketorolac Tromethamine 30mg Vial IV SCH
--- NOTE | 2025-03-07 02:07 | NUR ---
03/07/25 0207 Tiffani Sesay FHT 135 DOPPLER, MALE BORN AT 2248, TAKEN TO WARMER, 1/5/6. CORD BLOOD AND CORD SEGMENT FOR GASES SENT. SEE POST-OPERATIVE NOTE.
[2025-03-07 06:26] LABS: BASOPHILS ABSOLUTE AUTO 0.02 K/mm3 (0.00-0.23); BASOPHILS PERCENT AUTO 0 % (0-2); EOSINOPHILS ABSOLUTE AUTO 0.01 K/mm3 (0.00-0.68); EOSINOPHILS PERCENT AUTO 0 % (0-6); Hematocrit 25.5 % (33.0-51.0); Hemoglobin 8.7 g/dL (11.5-16.0); IMMATURE GRAN ABSOLUTE AUTO 0.13 K/mm3 (0.00-0.10); IMMATURE GRAN PERCENT AUTO 1 % (0-1); LYMPHOCYTES ABSOLUTE AUTO 1.45 K/mm3 (0.84-5.20); LYMPHOCYTES PERCENT AUTO 9 % (21-46); MONOCYTES ABSOLUTE AUTO 1.03 K/mm3 (0.16-1.47); MONOCYTES PERCENT AUTO 6 % (4-13); Mean Corpuscular HGB Conc 34.1 g/dL (31.5-36.5); Mean Corpuscular Volume 93 fL (80-100); NEUTROPHILS ABSOLUTE AUTO 14.15 K/mm3 (1.96-9.15); NEUTROPHILS PERCENT AUTO 84 % (41-73); NRBC ABSOLUTE 0.00 K/mm3 (0.00-0.02); NRBC Auto 0.0 /100 WBC (0.0-0.2); Platelet Count 112 K/mm3 (150-400); RDW Coefficient Variation 14.0 % (11.7-14.2); RDW Standard Deviation 47.1 fL (35.1-46.3)
[2025-03-07] MEDS ORDERED: Prenatal Vit/FE Fumarate/FA 1 Tab PO SCH (09:00)
[2025-03-08 00:41] VITALS: BP 125/72
[2025-03-08 03:42] VITALS: BP 129/83
[2025-03-08 08:16] VITALS: BP 125/69
[2025-03-08 14:20] VITALS: BP 149/78
[2025-03-08 16:14] VITALS: BP 134/81
[2025-03-08 19:30] VITALS: BP 142/87
[2025-03-09 05:29] VITALS: BP 123/69
[2025-03-09 09:09] VITALS: BP 179/84
[2025-03-09 10:11] VITALS: BP 157/99
[2025-03-09 10:40] VITALS: BP 123/79
--- NOTE | 2025-03-09 12:05 | NUR ---
PATIENT AMBULATED, INFANT CARRIED BY FATHER TO PERSONAL VEHICLE FOR DISCHARGE. ACCOMPANIED BY DOC MATTHEWS RN
== END 2025-03-09 11:30 | disposition home or self-care (01) | DRG 786 ==
LOC: OBS 08:58 → BC 09:02 → OBS 09:53 → BC 21:27
PROVIDERS: ADMIT Obstetrics & Gynecology
PROC: 3E03329 Introduction of Other Anti-infective into Peripheral Vein, Percutaneous Approach (ICD-10-PCS; 2025-03-06)
PROC: 10D00Z1 Extraction of Products of Conception, Low, Open Approach (ICD-10-PCS; principal; 2025-03-06 13:45)
DX: O62.1 Secondary uterine inertia (principal); O45.93 Premature separation of placenta, unspecified, third trimester; O63.9 Long labor, unspecified; Z37.0 Single live birth; Z3A.39 39 weeks gestation of pregnancy; O42.92 Full-term premature rupture of membranes, unspecified as to length of time between rupture and onset of labor; Z98.890 Other specified postprocedural states
CPT/HCPCS: 36415; 51702; 59070; 81003; 82803; 84443; 85025; 86850; 86900; 86901; 86923; A9270; J0456; J0690; J1885; J2003; J2371; J2405; J2540; J2590; J2765; J3010; J7050; J7120